=== PATIENT | female | born 1950 | race Caucasian/White ===

== ENCOUNTER → 2020-12-09 09:51 | Outpatient (CLI) | payer MEDICARE, SELFPAY ==
[2020-12-09 21:25] LABS: COVID19 - ORCAS (NP or Nasal) Negative (Negative)
== END ==
PROVIDERS: Family Provider Family Medicine; PCP Family Medicine; Visit Provider Family Medicine
DX: Z20.822 Contact with and (suspected) exposure to COVID-19 (principal)
CPT/HCPCS: C9803; U0003

== ENCOUNTER → 2021-03-28 09:16 | Outpatient (CLI) | payer MEDICARE, SELFPAY ==
[2021-03-28 21:13] LABS: COVID19 - ORCAS (NP or Nasal) Negative (Negative)
== END ==
PROVIDERS: Family Provider Family Medicine; PCP Family Medicine; Visit Provider Physician Assistant Medical
DX: Z20.822 Contact with and (suspected) exposure to COVID-19 (principal)
CPT/HCPCS: U0003